=== PATIENT | male | born 1960 | race African-American/Black ===

== ENCOUNTER 2016-11-25 20:11 | Emergency (ER) | payer MEDICARE, MEDICAID ==
[~2016-11-25] VITALS: Ht 175.3 cm; Wt 96.8 kg
[~2016-11-25 20:11] MED LIST: AMOXICILLIN 8751 TAB PO; ANORO IH; ANTIINFLAMMATORY MED; ANTIVERT 25MG25 MG PO; BENADRYL25 M2 PO; CLINDAMYCIN300 MG PO; COMBIRESP IH; DAZIDOX20 MG PO; DOXYCYCLINE 10100 MG PO; FLEXERIL 1010 MG/TAB PO; FLONASE NASAL S16 GM NS; FLONASEALLERGY NS; FLOVENT 110MCG7.9 GM IH; FLOVENT DI50 MCG/Act IH; HIGH CHOLESTEROL MED; IPRATROPIUM BROM3 M1 IH; LASIX 20MG TABL20 MG PO; LASIX 40MG TABL40 MG PO; LEVAQUIN 750MG750 M1 PO; LEVAQUIN 750MG750 MG PO; LIPITOR20 MG PO; LISINOPRIL10 MG PO; LORTAB 10/500 51 TAB PO; LORTAB 5/500 501 TAB PO; MEDROL 4MG DOSPA4 MG PO; MS CONTIN 115 MG/TAB PO; MUCINEX D1 TER PO; NORCO 325 MG-51 TAB PO; NORVASC 10MG10 MG PO; PERCOCET 325 MG1 TAB PO; PREDNISONE10 MG PO; PREDNISONE20 MG PO; PRILOSEC 20MG20 MG PO; PRINIVIL20 MG PO; ROXICODONE30 MG PO; RT ADVAIR 128 DISKUS IH; ULTRAM 50MG TAB50 MG PO; VENTOLIN0.09 MG IH; VICODIN 5/5001 UDTAB PO; ZESTRIL 20MG TA20 MG PO; ZITHROMAX 250M250 MG PO; ZITHROMAX Z PA250 MG PO; [UNRECOGNIZED DRUG - OTHER] PO
[2016-11-25 20:13] VITALS: BP 153/87; PULSE 97; TEMP 98.2
[2016-11-25] MEDS ORDERED: PREDNISONE20 MG PO (20:46)
[2016-12-30] MEDS ORDERED: IPRATROPIUM BROM3 M1 IH (09:41)
== END 2016-11-25 20:54 | disposition home or self-care (01) ==
LOC: COL.ER 20:11
DX: J45.901 Unspecified asthma with (acute) exacerbation (principal); I10 Essential (primary) hypertension; G47.30 Sleep apnea, unspecified; K21.9 Gastro-esophageal reflux disease without esophagitis
CPT/HCPCS: J7512

== ENCOUNTER 2016-12-12 20:34 | Emergency (ER) | payer MEDICARE, MEDICAID ==
[~2016-12-12] VITALS: Ht 175.3 cm; Wt 102.3 kg
[2016-12-12 20:42] VITALS: TEMP 98.3
[2016-12-12] MEDS ORDERED: PREDNISONE10 MG PO (22:25)
[2016-12-12 22:49] VITALS: BP 135/62; PULSE 98
[2016-12-30] MEDS ORDERED: IPRATROPIUM BROM3 M1 IH (09:41)
== END 2016-12-12 22:49 | disposition home or self-care (01) ==
LOC: COL.ER 20:34
DX: J45.901 Unspecified asthma with (acute) exacerbation (principal)
CPT/HCPCS: J8540

== ENCOUNTER 2016-12-28 10:07 | Observation (INO) | payer MEDICARE, MEDICAID ==
[~2016-12-28] VITALS: Ht 175.3 cm; Wt 106.5 kg
[2016-12-28 10:46] LABS: BASO # 0.1 (0.0-0.2); BASO % 0.9 % (0.0-2.0); EOS # 0.5 (0.0-0.7); GRAN # 5.1 (1.4-6.5); GRAN % 52.3 % (42.2-75.2); HEMATOCRIT 39.9 % (42.0-52.0); HEMOGLOBIN 13.3 g/dl (13.5-18.0); LYMPH # 3.1 (1.2-3.4); MEAN CELL VOLUME 90 fl (80.0-100.0); MEAN CORPUSCULAR HEMOGLOBIN 30 pg (27.0-31.0); MEAN CORPUSCULAR HGB CONC 33 g/dl (33.0-37.0); MEAN PLATELET VOLUME 10.2 fl (7.4-10.4); MONO # 0.9 (0.1-0.6); MONO % 9.5 % (1.7-9.3); PLATELET COUNT 244 K/mm3 (130-400); RED BLOOD COUNT 4.42 M/mm3 (4.20-5.60); REDCELL DISTRIBUTION WIDTH-CV 12.6 % (11.5-14.5); WHITE BLOOD COUNT 9.8 K/mm3 (4.8-10.8)
[2016-12-28 11:02] LABS: INFLUENZA B NEGATIVE
[2016-12-28 11:15] LABS: ADJUSTED CALCIUM 9.5 mg/dL (8.4-10.2); ALANINE AMINOTRANSFERASE 53 U/L (21-72); ALBUMIN 4.5 gm/dL (3.5-5.0); ALKALINE PHOSPHATASE 76 U/L (50-136); ANION GAP 14 mmol/L (7-16); BILIRUBIN,TOTAL 0.7 mg/dL (0.0-1.0); BLOOD UREA NITROGEN 21 mg/dL (9-20); CALCIUM 9.9 mg/dL (8.4-10.2); CARBON DIOXIDE 28 mmol/L (22-30); CHLORIDE 96 mmol/L (98-107); CREATININE, serum 1.25 mg/dL (0.66-1.25); GLUCOSE 122 mg/dL (74-106); POTASSIUM 4.6 mmol/L (3.4-5.0); SODIUM 137 mmol/L (137-145); TOTAL PROTEIN 8.2 gm/dL (6.4-8.2)
[2016-12-28 11:23] LABS: B-TYPE NATRIURETIC PEPTIDE 17 pg/mL (0-125)
[2016-12-28 11:27] LABS: TROPONIN-I < 0.012 ng/mL (0.000-0.034)
[2016-12-28] MEDS ORDERED: PRILOSEC 20MG20 MG PO (14:10)
[2016-12-28 14:54] VITALS: BP 146/90; PULSE 100; TEMP 98.2
[2016-12-28 14:57] VITALS: BP 146/90; PULSE 98; TEMP 98.2
[2016-12-28 19:58] VITALS: BP 148/89; PULSE 109; TEMP 97.9
[2016-12-28 23:55] VITALS: BP 144/79; PULSE 103; TEMP 98.2
[2016-12-29 03:16] VITALS: BP 148/82; PULSE 113; TEMP 97.5
[2016-12-29 03:38] VITALS: BP 167/86; PULSE 105; TEMP 98.2
[2016-12-29 07:39] VITALS: BP 165/101; PULSE 95; TEMP 97.9
[2016-12-29] MEDS ORDERED: IPRATROPIUM BROM3 M1 IH (08:40)
[2016-12-29] MEDS ORDERED: SINGULAIR 110 MG/TAB PO (08:42)
[2016-12-29] MEDS ORDERED: PREDNISONE20 MG PO (08:44)
[2016-12-29 09:10] VITALS: BP 149/83; PULSE 107; TEMP 98.9
[2016-12-30] MEDS ORDERED: IPRATROPIUM BROM3 M1 IH (09:41)
== END 2016-12-29 09:36 | disposition home or self-care (01) ==
LOC: COL.ER 10:07 → MEDICAL 13:06
PROVIDERS: Emergency Medicine
DX: J45.901 Unspecified asthma with (acute) exacerbation (principal); R11.2 Nausea with vomiting, unspecified; I10 Essential (primary) hypertension; M54.9 Dorsalgia, unspecified; K21.9 Gastro-esophageal reflux disease without esophagitis; G89.29 Other chronic pain
CPT/HCPCS: G0378; J1650; J2930; J7030

== ENCOUNTER 2017-01-20 03:45 | Emergency (ER) | payer MEDICARE, MEDICAID ==
[~2017-01-20] VITALS: Ht 175.3 cm; Wt 100.0 kg
[~2017-01-20 03:45] MED LIST changes: +SINGULAIR 110 MG/TAB PO
[2017-01-20 04:12] LABS: BASO # 0.1 (0.0-0.2); BASO % 0.9 % (0.0-2.0); EOS # 0.6 (0.0-0.7); EOS % 7.8 % (0-4.0); GRAN # 5.1 (1.4-6.5); GRAN % 61.9 % (42.2-75.2); HEMOGLOBIN 12.3 g/dl (13.5-18.0); LYMPH # 1.8 (1.2-3.4); LYMPH % 21.3 % (20.0-51.0); MEAN CELL VOLUME 89 fl (80.0-100.0); MEAN CORPUSCULAR HEMOGLOBIN 30 pg (27.0-31.0); MEAN CORPUSCULAR HGB CONC 34 g/dl (33.0-37.0); MEAN PLATELET VOLUME 9.7 fl (7.4-10.4); MONO # 0.7 (0.1-0.6); MONO % 7.9 % (1.7-9.3); PLATELET COUNT 199 K/mm3 (130-400); RED BLOOD COUNT 4.13 M/mm3 (4.20-5.60); WHITE BLOOD COUNT 8.2 K/mm3 (4.8-10.8)
[2017-01-20 04:14] LABS: HEMATOCRIT 36.6 % (42.0-52.0)
[2017-01-20 04:23] LABS: ADJUSTED CALCIUM 9.7 mg/dL (8.4-10.2); ALANINE AMINOTRANSFERASE 44 U/L (21-72); ALBUMIN 4.3 gm/dL (3.5-5.0); ALKALINE PHOSPHATASE 67 U/L (50-136); ANION GAP 11 mmol/L (7-16); BILIRUBIN,TOTAL 0.8 mg/dL (0.0-1.0); BLOOD UREA NITROGEN 12 mg/dL (9-20); CALCIUM 9.9 mg/dL (8.4-10.2); CARBON DIOXIDE 31 mmol/L (22-30); CHLORIDE 93 mmol/L (98-107); CREATININE, serum 1.43 mg/dL (0.66-1.25); GLUCOSE 117 mg/dL (74-106); POTASSIUM 4.3 mmol/L (3.4-5.0); SODIUM 135 mmol/L (137-145); TOTAL PROTEIN 7.7 gm/dL (6.4-8.2)
[2017-01-20 04:27] LABS: INFLUENZA B NEGATIVE
[2017-01-20 04:34] LABS: B-TYPE NATRIURETIC PEPTIDE 16 pg/mL (0-125); TROPONIN-I < 0.012 ng/mL (0.000-0.034)
[2017-01-20] MEDS ORDERED: ZITHROMAX 250M250 MG PO (05:23)
[2017-01-20] MEDS ORDERED: PREDNISONE20 MG PO (05:23)
[2017-01-20 05:40] VITALS: BP 134/91; PULSE 92; TEMP 98.8
== END 2017-01-20 05:40 | disposition home or self-care (01) ==
LOC: COL.ER 03:45
PROVIDERS: Emergency Medicine
DX: J45.901 Unspecified asthma with (acute) exacerbation (principal); I10 Essential (primary) hypertension
CPT/HCPCS: J2930; J7512

== ENCOUNTER 2017-02-02 23:08 | Emergency (ER) | payer MEDICARE, MEDICAID ==
[~2017-02-02] VITALS: Ht 175.3 cm; Wt 102.3 kg
[2017-02-02 23:09] VITALS: TEMP 98.1
[2017-02-02] MEDS ORDERED: VENTOLIN0.09 MG IH (23:15)
[2017-02-02] MEDS ORDERED: FLOVENT DI100 MCG/Ac IH (23:18)
[2017-02-02] MEDS ORDERED: COMBIRESP IH (23:19)
[2017-02-02 23:24] LABS: BASO # 0.1 (0.0-0.2); BASO % 0.6 % (0.0-2.0); EOS # 0.7 (0.0-0.7); EOS % 7.8 % (0-4.0); GRAN # 5.5 (1.4-6.5); GRAN % 57.4 % (42.2-75.2); HEMATOCRIT 37.3 % (42.0-52.0); HEMOGLOBIN 12.4 g/dl (13.5-18.0); LYMPH # 2.4 (1.2-3.4); LYMPH % 25.5 % (20.0-51.0); MEAN CELL VOLUME 89 fl (80.0-100.0); MEAN CORPUSCULAR HEMOGLOBIN 30 pg (27.0-31.0); MEAN CORPUSCULAR HGB CONC 33 g/dl (33.0-37.0); MEAN PLATELET VOLUME 9.7 fl (7.4-10.4); MONO # 0.8 (0.1-0.6); MONO % 8.5 % (1.7-9.3); PLATELET COUNT 215 K/mm3 (130-400); REDCELL DISTRIBUTION WIDTH-CV 12.3 % (11.5-14.5); WHITE BLOOD COUNT 9.5 K/mm3 (4.8-10.8)
[2017-02-02 23:35] LABS: ALANINE AMINOTRANSFERASE 35 U/L (21-72); ALBUMIN 4.3 gm/dL (3.5-5.0); ALKALINE PHOSPHATASE 60 U/L (50-136); ANION GAP 14 mmol/L (7-16); BILIRUBIN,TOTAL 0.8 mg/dL (0.0-1.0); BLOOD UREA NITROGEN 9 mg/dL (9-20); CALCIUM 10.2 mg/dL (8.4-10.2); CARBON DIOXIDE 28 mmol/L (22-30); CHLORIDE 97 mmol/L (98-107); CREATININE, serum 1.08 mg/dL (0.66-1.25); GLUCOSE 104 mg/dL (74-106); MAGNESIUM 1.7 mg/dL (1.6-2.3); POTASSIUM 4.1 mmol/L (3.4-5.0); SODIUM 139 mmol/L (137-145); TOTAL PROTEIN 7.6 gm/dL (6.4-8.2)
[2017-02-02 23:47] LABS: B-TYPE NATRIURETIC PEPTIDE 14 pg/mL (0-125)
[2017-02-02 23:58] LABS: TROPONIN-I < 0.012 ng/mL (0.000-0.034)
[2017-02-03] MEDS ORDERED: PREDNISONE10 MG PO (02:21)
[2017-02-03 03:34] VITALS: BP 139/83; PULSE 113
== END 2017-02-03 03:34 | disposition home or self-care (01) ==
LOC: COL.ER 23:08
PROVIDERS: Emergency Medicine
DX: J45.901 Unspecified asthma with (acute) exacerbation (principal); R00.0 Tachycardia, unspecified
CPT/HCPCS: J1170; J7030; J7512

== ENCOUNTER 2017-02-20 16:02 | Emergency (ER) | payer MEDICARE, MEDICAID ==
[~2017-02-20] VITALS: Ht 175.3 cm; Wt 45.0 kg
[~2017-02-20 16:02] MED LIST changes: +FLOVENT DI100 MCG/Ac IH
[2017-02-20 16:05] VITALS: BP 133/82; TEMP 98.2
[2017-02-20] MEDS ORDERED: PREDNISONE20 MG PO (16:55)
[2017-02-20 18:04] VITALS: PULSE 101
== END 2017-02-20 18:06 | disposition home or self-care (01) ==
LOC: COL.ER 16:02
DX: J45.901 Unspecified asthma with (acute) exacerbation (principal)
CPT/HCPCS: J7512

== ENCOUNTER 2017-03-09 10:35 | Day surgery (SDC) | payer MEDICARE, MEDICAID ==
[2017-03-09] VITALS (9 sets, daily range): BP systolic 129–150; BP diastolic 68–95; PULSE 86–105; TEMP 98.1–98.3
[~2017-03-09] VITALS: Ht 175.3 cm; Wt 99.1 kg
[2017-03-09] MEDS ORDERED: XYZAL5 MG PO (11:20)
[2017-03-09] MEDS ORDERED: ANORO IH (11:23)
[2017-03-09] MEDS ORDERED: MOTRIN 600600 MG/TAB PO (14:24)
[2017-03-09] MEDS ORDERED: PERCOCET 325 MG1 TA3 PO (14:25)
[2017-03-09] MEDS ORDERED: ZOFRAN ODT4 MG PO (14:26)
[2017-03-09] MEDS ORDERED: COLACE 100100 MG/CAP PO (14:26)
== END 2017-03-09 17:47 | disposition home or self-care (01) ==
LOC: SDCO 10:35
DX: I10 Essential (primary) hypertension (principal); E78.5 Hyperlipidemia, unspecified; G47.30 Sleep apnea, unspecified; K21.9 Gastro-esophageal reflux disease without esophagitis; D17.6 Benign lipomatous neoplasm of spermatic cord
CPT/HCPCS: C1781; J0690; J1885; J2270; J2704; J3010; J7120

== ENCOUNTER 2017-03-10 05:55 | Emergency (ER) | payer MEDICARE, MEDICAID ==
[~2017-03-10] VITALS: Ht 175.3 cm; Wt 99.5 kg
[~2017-03-10 05:55] MED LIST changes: +COLACE 100100 MG/CAP PO; +MOTRIN 600600 MG/TAB PO; +PERCOCET 325 MG1 TA3 PO; +XYZAL5 MG PO; +ZOFRAN ODT4 MG PO
[2017-03-10 05:58] VITALS: TEMP 97.7
[2017-03-10 07:02] LABS: BASO % 0.4 % (0.0-2.0); EOS # 0.3 (0.0-0.7); EOS % 2.6 % (0-4.0); GRAN # 8.1 (1.4-6.5); GRAN % 74.8 % (42.2-75.2); HEMOGLOBIN 12.2 g/dl (13.5-18.0); LYMPH # 1.3 (1.2-3.4); LYMPH % 12.2 % (20.0-51.0); MEAN CELL VOLUME 89 fl (80.0-100.0); MEAN CORPUSCULAR HEMOGLOBIN 30 pg (27.0-31.0); MEAN CORPUSCULAR HGB CONC 34 g/dl (33.0-37.0); MEAN PLATELET VOLUME 10.4 fl (7.4-10.4); MONO % 9.6 % (1.7-9.3); PLATELET COUNT 190 K/mm3 (130-400); RED BLOOD COUNT 4.11 M/mm3 (4.20-5.60); WHITE BLOOD COUNT 10.8 K/mm3 (4.8-10.8)
[2017-03-10 07:05] LABS: HEMATOCRIT 36.4 % (42.0-52.0)
[2017-03-10 07:09] LABS: ADJUSTED CALCIUM 9.4 mg/dL (8.4-10.2); ALBUMIN 3.8 gm/dL (3.5-5.0); BILIRUBIN,TOTAL 1.3 mg/dL (0.0-1.0); CALCIUM 9.2 mg/dL (8.4-10.2); POTASSIUM 3.9 mmol/L (3.4-5.0); TOTAL PROTEIN 6.8 gm/dL (6.4-8.2)
[2017-03-10 10:34] VITALS: BP 147/94; PULSE 88
== END 2017-03-10 10:36 | disposition home or self-care (01) ==
LOC: COL.ER 05:55
PROVIDERS: Emergency Medicine
DX: J45.901 Unspecified asthma with (acute) exacerbation (principal); I10 Essential (primary) hypertension; Z98.890 Other specified postprocedural states
CPT/HCPCS: J1100; J1170; J7030; Q9967

== ENCOUNTER 2017-03-23 21:27 | Inpatient (IN) | payer MEDICARE, MEDICAID ==
[~2017-03-23] VITALS: Ht 175.3 cm; Wt 98.4 kg
[2017-03-23 22:24] LABS: BASO # 0.1 (0.0-0.2); BASO % 0.9 % (0.0-2.0); EOS # 0.7 (0.0-0.7); EOS % 9.8 % (0-4.0); GRAN # 3.5 (1.4-6.5); GRAN % 52.4 % (42.2-75.2); HEMOGLOBIN 12.5 g/dl (13.5-18.0); MEAN CELL VOLUME 89 fl (80.0-100.0); MEAN CORPUSCULAR HEMOGLOBIN 30 pg (27.0-31.0); MEAN CORPUSCULAR HGB CONC 34 g/dl (33.0-37.0); MEAN PLATELET VOLUME 9.7 fl (7.4-10.4); MONO # 0.4 (0.1-0.6); MONO % 6.7 % (1.7-9.3); PLATELET COUNT 260 K/mm3 (130-400); RED BLOOD COUNT 4.14 M/mm3 (4.20-5.60); REDCELL DISTRIBUTION WIDTH-CV 12.3 % (11.5-14.5); WHITE BLOOD COUNT 6.6 K/mm3 (4.8-10.8)
[2017-03-23 22:33] LABS: ADJUSTED CALCIUM 9.7 mg/dL (8.4-10.2); ALBUMIN 3.9 gm/dL (3.5-5.0); BILIRUBIN,TOTAL 0.5 mg/dL (0.0-1.0); CALCIUM 9.6 mg/dL (8.4-10.2); CREATININE, serum 0.97 mg/dL (0.66-1.25)
[2017-03-23 22:43] LABS: HEMATOCRIT 36.8 % (42.0-52.0)
[2017-03-23 23:52] LABS: ARTERIAL BLD GAS O2 SATURATION 89.9 % (92-100); ARTERIAL BLD GAS TCO2 CT 25.8; ARTERIAL BLOOD GAS BASE EXCESS -0.2 (-2-2); ARTERIAL BLOOD GAS HCO3 24.5 meq/L (22-26); ARTERIAL BLOOD GAS PO2 62.1 mmHg (80-100)
[2017-03-23 23:53] LABS: ALLEN TEST YES; ALLENS TEST RESULT PASS; ATS? YES
[2017-03-23 23:57] LABS: INFLUENZA B NEGATIVE
[2017-03-24 01:33] VITALS: BP 159/81; PULSE 101; TEMP 98.8
[2017-03-24 07:30] VITALS: BP 139/75; PULSE 94; TEMP 98.1
[2017-03-24 11:45] VITALS: BP 139/92; PULSE 73; TEMP 98.3
[2017-03-24] MEDS ORDERED: COMBIRESP IH (13:25)
[2017-03-24] MEDS ORDERED: FLONASEALLERGY NS (13:26)
[2017-03-24] MEDS ORDERED: PREDNISONE20 MG PO (13:27)
[2017-03-24] MEDS ORDERED: SINGULAIR 110 MG/TAB PO (13:28)
== END 2017-03-24 14:58 | disposition home or self-care (01) | DRG 203 ==
LOC: COL.ER 21:27 → MEDICAL 23:53
PROVIDERS: Emergency Medicine
DX: J45.51 Severe persistent asthma with (acute) exacerbation (principal); I10 Essential (primary) hypertension; D64.9 Anemia, unspecified; G89.29 Other chronic pain; M54.9 Dorsalgia, unspecified
CPT/HCPCS: J0696; J1650; J2930; J7030

== ENCOUNTER 2017-04-15 12:34 | Emergency (ER) | payer MEDICARE, MEDICAID ==
[~2017-04-15] VITALS: Ht 175.3 cm; Wt 95.5 kg
[2017-04-15 12:36] VITALS: BP 122/78; TEMP 98.1
[2017-04-15] MEDS ORDERED: ZITHROMAX500 M2 PO (13:06)
[2017-04-15] MEDS ORDERED: PREDNISONE20 MG PO (13:06)
[2017-04-15 13:25] VITALS: PULSE 104
== END 2017-04-15 14:00 | disposition home or self-care (01) ==
LOC: COL.ER 12:34
DX: J45.901 Unspecified asthma with (acute) exacerbation (principal); I10 Essential (primary) hypertension
CPT/HCPCS: J7512

== ENCOUNTER 2017-05-14 06:25 | Emergency (ER) | payer MEDICARE, MEDICAID ==
[~2017-05-14] VITALS: Ht 175.3 cm; Wt 97.7 kg
[~2017-05-14 06:25] MED LIST changes: +ZITHROMAX500 M2 PO
[2017-05-14 06:27] VITALS: BP 136/83; TEMP 98.3
[2017-05-14] MEDS ORDERED: ANORO IH (06:41)
[2017-05-14] MEDS ORDERED: ALBUTEROL0.83 MG/ML IH (06:42)
[2017-05-14] MEDS ORDERED: PREDNISONE20 MG PO (08:29)
[2017-05-14] MEDS ORDERED: ZITHROMAX Z PA250 MG PO (08:29)
[2017-05-14 08:45] VITALS: PULSE 103
== END 2017-05-14 08:46 | disposition home or self-care (01) ==
LOC: COL.ER 06:25
DX: J20.9 Acute bronchitis, unspecified (principal); J45.909 Unspecified asthma, uncomplicated; I10 Essential (primary) hypertension; G89.29 Other chronic pain; M54.9 Dorsalgia, unspecified
CPT/HCPCS: J7512

== ENCOUNTER 2017-05-31 05:10 | Emergency (ER) | payer MEDICARE, MEDICAID ==
[~2017-05-31] VITALS: Ht 175.3 cm; Wt 95.5 kg
[~2017-05-31 05:10] MED LIST changes: +ALBUTEROL0.83 MG/ML IH
[2017-05-31 05:11] VITALS: TEMP 97.9
[2017-05-31] MEDS ORDERED: PROVENTIL0.09 MG/A1 IH (05:44)
[2017-05-31] MEDS ORDERED: PREDNISONE20 MG PO (06:58)
[2017-05-31 07:33] VITALS: BP 142/70; PULSE 96
== END 2017-05-31 07:34 | disposition home or self-care (01) ==
LOC: COL.ER 05:10
DX: J45.901 Unspecified asthma with (acute) exacerbation (principal); I10 Essential (primary) hypertension
CPT/HCPCS: J7512

== ENCOUNTER 2017-06-11 12:13 | Emergency (ER) | payer MEDICARE, MEDICAID ==
[~2017-06-11] VITALS: Ht 175.3 cm; Wt 95.9 kg
[~2017-06-11 12:13] MED LIST changes: +PROVENTIL0.09 MG/A1 IH
[2017-06-11 12:22] VITALS: BP 146/88; TEMP 98.6
[2017-06-11] MEDS ORDERED: ANORO (12:39)
[2017-06-11] MEDS ORDERED: PREDNISONE20 MG PO (13:04)
[2017-06-11 13:24] VITALS: PULSE 95
== END 2017-06-11 13:25 | disposition home or self-care (01) ==
LOC: COL.ER 12:13
DX: J45.901 Unspecified asthma with (acute) exacerbation (principal); K21.9 Gastro-esophageal reflux disease without esophagitis; M25.561 Pain in right knee
CPT/HCPCS: J7512

== ENCOUNTER 2017-06-29 09:20 | Emergency (ER) | payer MEDICARE, MEDICAID ==
[~2017-06-29] VITALS: Ht 175.3 cm; Wt 95.5 kg
[~2017-06-29 09:20] MED LIST changes: +ANORO
[2017-06-29] MEDS ORDERED: FLOVENT 110MCG7.9 GM IH (10:12)
[2017-06-29] MEDS ORDERED: VENTOLIN0.09 MG IH (10:12)
[2017-06-29] MEDS ORDERED: PREDNISONE20 MG PO (10:12)
[2017-06-29 10:58] VITALS: BP 121/77; PULSE 94; TEMP 97.8
== END 2017-06-29 11:11 | disposition home or self-care (01) ==
LOC: COL.ER 09:20
DX: J45.901 Unspecified asthma with (acute) exacerbation (principal); I10 Essential (primary) hypertension; M54.9 Dorsalgia, unspecified; G89.29 Other chronic pain
CPT/HCPCS: J7512

== ENCOUNTER 2017-07-06 18:23 | Emergency (ER) | payer MEDICARE, MEDICAID ==
[~2017-07-06] VITALS: Ht 175.3 cm; Wt 93.6 kg
[2017-07-06 18:26] VITALS: TEMP 98.1
[2017-07-06 19:01] LABS: BASO % 0.4 % (0.0-2.0); EOS # 0.3 (0.0-0.7); EOS % 4.5 % (0-4.0); GRAN # 4.2 (1.4-6.5); GRAN % 55.6 % (42.2-75.2); HEMATOCRIT 38.5 % (42.0-52.0); HEMOGLOBIN 12.8 g/dl (13.5-18.0); LYMPH # 2.4 (1.2-3.4); MEAN CELL VOLUME 89 fl (80.0-100.0); MEAN CORPUSCULAR HEMOGLOBIN 30 pg (27.0-31.0); MEAN CORPUSCULAR HGB CONC 33 g/dl (33.0-37.0); MEAN PLATELET VOLUME 9.6 fl (7.4-10.4); MONO # 0.5 (0.1-0.6); MONO % 7.1 % (1.7-9.3); PLATELET COUNT 255 K/mm3 (130-400); RED BLOOD COUNT 4.32 M/mm3 (4.20-5.60); REDCELL DISTRIBUTION WIDTH-CV 12.7 % (11.5-14.5); WHITE BLOOD COUNT 7.6 K/mm3 (4.8-10.8)
[2017-07-06 19:18] LABS: ADJUSTED CALCIUM 9.4 mg/dL (8.4-10.2); ALANINE AMINOTRANSFERASE 51 U/L (21-72); ALBUMIN 4.2 gm/dL (3.5-5.0); ALKALINE PHOSPHATASE 66 U/L (50-136); ANION GAP 9 mmol/L (7-16); BILIRUBIN,TOTAL 0.6 mg/dL (0.0-1.0); BLOOD UREA NITROGEN 18 mg/dL (9-20); CALCIUM 9.6 mg/dL (8.4-10.2); CARBON DIOXIDE 31 mmol/L (22-30); CHLORIDE 93 mmol/L (98-107); CREATININE, serum 0.94 mg/dL (0.66-1.25); GLUCOSE 98 mg/dL (74-106); POTASSIUM 4.1 mmol/L (3.4-5.0); SODIUM 133 mmol/L (137-145); TOTAL PROTEIN 7.5 gm/dL (6.4-8.2)
[2017-07-06 19:24] LABS: C-REACTIVE PROTEIN 0.5 mg/dL (0.0-0.9)
[2017-07-06 19:27] LABS: TROPONIN-I < 0.012 ng/mL (0.000-0.034)
[2017-07-06] MEDS ORDERED: PREDNISONE20 MG PO (20:00)
[2017-07-06] MEDS ORDERED: ANTIVERT 25MG25 MG PO (20:00)
[2017-07-06 20:15] VITALS: BP 145/78; PULSE 88
== END 2017-07-06 20:16 | disposition home or self-care (01) ==
LOC: COL.ER 18:23
PROVIDERS: Emergency Medicine
DX: J45.909 Unspecified asthma, uncomplicated (principal); R42 Dizziness and giddiness; R19.7 Diarrhea, unspecified; I10 Essential (primary) hypertension
CPT/HCPCS: J2405; J7030; J7512

== ENCOUNTER 2017-08-04 22:23 | Emergency (ER) | payer MEDICARE, MEDICAID ==
[~2017-08-04] VITALS: Ht 175.3 cm; Wt 95.5 kg
[2017-08-04 22:25] VITALS: BP 141/74
[2017-08-04] MEDS ORDERED: IPRATROPIUM BROM3 M1 IH ×2 (22:41→23:54)
[2017-08-04] MEDS ORDERED: PREDNISONE20 MG PO (23:20)
[2017-08-04 23:57] VITALS: PULSE 94; TEMP 98.3
[2017-08-05] MEDS ORDERED: PREDNISONE20 MG PO (08:57)
[2017-08-05] MEDS ORDERED: IPRATROPIUM BROM3 M1 IH ×3 (08:57→08:59)
== END 2017-08-04 23:57 | disposition home or self-care (01) ==
LOC: COL.ER 22:23
DX: J45.901 Unspecified asthma with (acute) exacerbation (principal)
CPT/HCPCS: J7512

== ENCOUNTER 2017-08-15 16:56 | Emergency (ER) | payer MEDICARE ==
[~2017-08-15] VITALS: Ht 175.3 cm; Wt 95.0 kg
[2017-08-15 16:59] VITALS: BP 145/83; TEMP 98.1
[2017-08-15] MEDS ORDERED: SINGULAIR 110 MG/TAB PO (18:58)
[2017-08-15] MEDS ORDERED: PREDNISONE20 MG PO (18:58)
[2017-08-15 19:03] VITALS: PULSE 110
== END 2017-08-15 19:04 | disposition home or self-care (01) ==
LOC: COL.ER 16:56
DX: J45.901 Unspecified asthma with (acute) exacerbation (principal); I10 Essential (primary) hypertension; R00.0 Tachycardia, unspecified; G89.29 Other chronic pain; M54.9 Dorsalgia, unspecified; M25.561 Pain in right knee
CPT/HCPCS: J7512

== ENCOUNTER 2017-09-02 04:10 | Emergency (ER) | payer MEDICARE ==
[~2017-09-02] VITALS: Ht 175.3 cm; Wt 95.5 kg
[2017-09-02 04:18] VITALS: TEMP 97.8
[2017-09-02] MEDS ORDERED: PREDNISONE20 MG PO (06:26)
[2017-09-02] MEDS ORDERED: PROTONIX 40MG T40 MG PO (06:26)
[2017-09-02 06:45] VITALS: BP 128/81; PULSE 81
== END 2017-09-02 06:45 | disposition home or self-care (01) ==
LOC: COL.ER 04:10
DX: J44.1 Chronic obstructive pulmonary disease with (acute) exacerbation (principal); J45.901 Unspecified asthma with (acute) exacerbation; K21.9 Gastro-esophageal reflux disease without esophagitis; Z98.890 Other specified postprocedural states
CPT/HCPCS: J7512

== ENCOUNTER 2017-09-13 10:27 | Emergency (ER) | payer MEDICARE ==
[~2017-09-13] VITALS: Ht 175.3 cm; Wt 95.5 kg
[~2017-09-13 10:27] MED LIST changes: +PROTONIX 40MG T40 MG PO
[2017-09-13 10:32] VITALS: BP 158/80; PULSE 99; TEMP 97
== END 2017-09-13 11:42 | disposition left against medical advice (07) ==
LOC: COL.ER 10:27
DX: R51 Headache (principal); R11.0 Nausea; R06.02 Shortness of breath

== ENCOUNTER 2017-09-24 05:51 | Emergency (ER) | payer MEDICARE ==
[~2017-09-24] VITALS: Ht 175.3 cm; Wt 94.9 kg
[2017-09-24 05:53] VITALS: TEMP 97.8
[2017-09-24] MEDS ORDERED: ZITHROMAX 250M250 MG PO (06:50)
[2017-09-24] MEDS ORDERED: PREDNISONE20 MG PO (06:50)
[2017-09-24 07:05] VITALS: BP 134/88; PULSE 91
== END 2017-09-24 07:01 | disposition home or self-care (01) ==
LOC: COL.ER 05:51
DX: J20.9 Acute bronchitis, unspecified (principal); J45.909 Unspecified asthma, uncomplicated; J32.9 Chronic sinusitis, unspecified; I10 Essential (primary) hypertension; F17.210 Nicotine dependence, cigarettes, uncomplicated; K21.9 Gastro-esophageal reflux disease without esophagitis
CPT/HCPCS: J7512

== ENCOUNTER 2017-10-14 19:09 | Emergency (ER) | payer MEDICARE ==
[~2017-10-14] VITALS: Ht 175.3 cm; Wt 93.2 kg
[2017-10-14 19:11] VITALS: BP 128/79
[2017-10-14] MEDS ORDERED: VENTOLIN0.09 MG IH (19:29)
[2017-10-14] MEDS ORDERED: DOXYCYCLINE 10100 MG PO (20:16)
[2017-10-14] MEDS ORDERED: PREDNISONE20 MG PO (20:16)
[2017-10-14 21:38] VITALS: PULSE 104; TEMP 96.8
== END 2017-10-14 22:08 | disposition home or self-care (01) ==
LOC: COL.ER 19:09
DX: J44.0 Chronic obstructive pulmonary disease with (acute) lower respiratory infection (principal); J44.1 Chronic obstructive pulmonary disease with (acute) exacerbation; J20.9 Acute bronchitis, unspecified
CPT/HCPCS: J7512

== ENCOUNTER 2017-11-04 11:25 | Emergency (ER) | payer MEDICARE, MEDICAID ==
[~2017-11-04] VITALS: Ht 175.3 cm; Wt 95.5 kg
[2017-11-04 11:28] VITALS: TEMP 98.2
[2017-11-04] MEDS ORDERED: PREDNISONE20 MG PO (14:21)
[2017-11-04 14:28] VITALS: BP 122/77; PULSE 88
== END 2017-11-04 14:29 | disposition home or self-care (01) ==
LOC: COL.ER 11:25
DX: J45.901 Unspecified asthma with (acute) exacerbation (principal); I10 Essential (primary) hypertension; M54.9 Dorsalgia, unspecified; G89.29 Other chronic pain
CPT/HCPCS: J7512

== ENCOUNTER 2018-03-29 14:09 | Emergency (ER) | payer MEDICARE ==
[~2018-03-29] VITALS: Ht 175.3 cm; Wt 100.0 kg
[2018-03-29 14:12] VITALS: BP 177/91; TEMP 97.1
[2018-03-29] MEDS ORDERED: AMOXICILLIN 8751 TAB PO (14:48)
[2018-03-29] MEDS ORDERED: PREDNISONE20 MG PO (14:48)
[2018-03-29 15:08] VITALS: PULSE 70
== END 2018-03-29 15:09 | disposition home or self-care (01) ==
LOC: COL.ER 14:09
DX: J45.901 Unspecified asthma with (acute) exacerbation (principal); J32.9 Chronic sinusitis, unspecified; K21.9 Gastro-esophageal reflux disease without esophagitis; Z86.69 Personal history of other diseases of the nervous system and sense organs; Z98.890 Other specified postprocedural states; Z79.51 Long term (current) use of inhaled steroids

== ENCOUNTER 2018-05-06 17:37 | Emergency (ER) | payer MEDICARE ==
[~2018-05-06] VITALS: Ht 175.3 cm; Wt 98.2 kg
[2018-05-06 17:44] VITALS: BP 127/84; PULSE 76; TEMP 97.7
[2018-05-06] MEDS ORDERED: PREDNISONE10 MG PO (18:06)
== END 2018-05-06 18:29 | disposition home or self-care (01) ==
LOC: COL.ER 17:37
DX: J45.909 Unspecified asthma, uncomplicated (principal); J06.9 Acute upper respiratory infection, unspecified; G47.33 Obstructive sleep apnea (adult) (pediatric); M54.5 Low back pain; G89.29 Other chronic pain; Z79.891 Long term (current) use of opiate analgesic

== ENCOUNTER 2018-07-01 21:13 | Emergency (ER) | payer MEDICARE ==
[~2018-07-01] VITALS: Ht 175.3 cm; Wt 97.7 kg
[2018-07-01 21:22] VITALS: BP 130/78; PULSE 69; TEMP 97.9
[2018-07-01] MEDS ORDERED: ZITHROMAX 250M250 MG PO (21:35)
[2018-07-01] MEDS ORDERED: PREDNISONE20 MG PO (21:35)
== END 2018-07-01 21:50 | disposition home or self-care (01) ==
LOC: COL.ER 21:13
DX: J06.9 Acute upper respiratory infection, unspecified (principal); J45.909 Unspecified asthma, uncomplicated; Z79.891 Long term (current) use of opiate analgesic
CPT/HCPCS: J7512

== ENCOUNTER 2018-08-11 22:50 | Emergency (ER) | payer MEDICARE ==
[~2018-08-11] VITALS: Ht 175.3 cm; Wt 99.1 kg
[2018-08-11 22:58] VITALS: BP 164/88
[2018-08-11 23:18] VITALS: TEMP 97.1
[2018-08-11] MEDS ORDERED: PRINIVIL40 MG PO (23:20)
[2018-08-11] MEDS ORDERED: DAZIDOX10 MG PO ×2 (23:20→23:21)
[2018-08-11] MEDS ORDERED: ROXICODONE30 MG PO (23:21)
[2018-08-11] MEDS ORDERED: 00186-0370-20 IH (23:22)
[2018-08-11] MEDS ORDERED: ALBUTEROL0.83 MG/ML IH (23:22)
[2018-08-11] MEDS ORDERED: ZITHROMAX 250M250 MG PO (23:24)
[2018-08-11] MEDS ORDERED: PREDNISONE20 MG PO (23:24)
[2018-08-12 00:20] VITALS: PULSE 70
== END 2018-08-12 00:20 | disposition home or self-care (01) ==
LOC: COL.ER 22:50
DX: J06.9 Acute upper respiratory infection, unspecified (principal); J44.9 Chronic obstructive pulmonary disease, unspecified; Z98.890 Other specified postprocedural states
CPT/HCPCS: J7512

== ENCOUNTER 2018-09-01 16:47 | Emergency (ER) | payer MEDICARE ==
[~2018-09-01] VITALS: Ht 175.3 cm; Wt 100.0 kg
[~2018-09-01 16:47] MED LIST changes: +00186-0370-20 IH; +DAZIDOX10 MG PO; +PRINIVIL40 MG PO
[2018-09-01] MEDS ORDERED: PREDNISONE10 MG PO (17:13)
[2018-09-01 17:20] VITALS: BP 174/80; PULSE 64; TEMP 97.6
== END 2018-09-01 17:20 | disposition home or self-care (01) ==
LOC: COL.ER 16:47
DX: J06.9 Acute upper respiratory infection, unspecified (principal); J31.0 Chronic rhinitis; J45.909 Unspecified asthma, uncomplicated
CPT/HCPCS: J7512

== ENCOUNTER 2018-09-19 04:34 | Emergency (ER) | payer MEDICARE ==
[~2018-09-19] VITALS: Ht 175.3 cm; Wt 103.2 kg
[2018-09-19 04:38] VITALS: BP 136/74; TEMP 98.3
[2018-09-19] MEDS ORDERED: FLONASE NASAL S16 GM NS (04:53)
[2018-09-19] MEDS ORDERED: PREDNISONE10 MG PO (05:32)
[2018-09-19 05:37] VITALS: PULSE 87
== END 2018-09-19 05:48 | disposition home or self-care (01) ==
LOC: COL.ER 04:34
DX: J45.901 Unspecified asthma with (acute) exacerbation (principal); J06.9 Acute upper respiratory infection, unspecified
CPT/HCPCS: J8540

== ENCOUNTER 2018-11-03 09:46 | Emergency (ER) | payer MEDICARE ==
[~2018-11-03] VITALS: Ht 175.3 cm; Wt 102.3 kg
[2018-11-03 09:51] VITALS: TEMP 96.1
[2018-11-03 10:32] LABS: BASO % 0.3 % (0.0-2.0); EOS # 0.4 (0.0-0.7); EOS % 5.6 % (0-4.0); GRAN % 47.1 % (42.2-75.2); HEMATOCRIT 40.6 % (42.0-52.0); HEMOGLOBIN 13.5 g/dl (13.5-18.0); LYMPH # 2.4 (1.2-3.4); LYMPH % 36.8 % (20.0-51.0); MEAN CELL VOLUME 90 fl (80.0-100.0); MEAN CORPUSCULAR HEMOGLOBIN 30 pg (27.0-31.0); MEAN CORPUSCULAR HGB CONC 33 g/dl (33.0-37.0); MEAN PLATELET VOLUME 10.2 fl (7.4-10.4); MONO # 0.6 (0.1-0.6); MONO % 9.9 % (1.7-9.3); PLATELET COUNT 230 K/mm3 (130-400); RED BLOOD COUNT 4.53 M/mm3 (4.20-5.60); REDCELL DISTRIBUTION WIDTH-CV 12.5 % (11.5-14.5)
[2018-11-03 10:42] LABS: ALANINE AMINOTRANSFERASE 26 U/L (21-72); ALBUMIN 4.5 gm/dL (3.5-5.0); ALKALINE PHOSPHATASE 84 U/L (50-136); ANION GAP 7 mmol/L (7-16); AST,SGOT 29 U/L (15-37); BILIRUBIN,TOTAL 0.3 mg/dL (0.0-1.0); BLOOD UREA NITROGEN 17 mg/dL (9-20); CALCIUM 9.8 mg/dL (8.4-10.2); CARBON DIOXIDE 30 mmol/L (22-30); CHLORIDE 101 mmol/L (98-107); CREATININE, serum 0.92 mg/dL (0.66-1.25); GLUCOSE 102 mg/dL (74-106); SODIUM 138 mmol/L (137-145); TOTAL PROTEIN 7.8 gm/dL (6.4-8.2)
[2018-11-03 10:44] LABS: ALCOHOL(ethanol),MEDICAL < 10 mg/dL
[2018-11-03 11:40] VITALS: BP 138/77; PULSE 64
== END 2018-11-03 11:58 | disposition home or self-care (01) ==
LOC: COL.ER 09:46
PROVIDERS: Emergency Medicine
DX: R42 Dizziness and giddiness (principal); R51 Headache; J45.909 Unspecified asthma, uncomplicated; Z79.51 Long term (current) use of inhaled steroids
CPT/HCPCS: J0780; J1200; J1885; J7030

== ENCOUNTER 2018-12-31 15:23 | Emergency (ER) | payer MEDICARE ==
[~2018-12-31] VITALS: Ht 175.3 cm; Wt 102.5 kg
[2018-12-31 15:28] VITALS: BP 135/67
[2018-12-31] MEDS ORDERED: ZITHROMAX Z PA250 MG PO (17:12)
[2018-12-31 17:30] VITALS: PULSE 78
== END 2018-12-31 17:31 | disposition home or self-care (01) ==
LOC: COL.ER 15:23
DX: J06.9 Acute upper respiratory infection, unspecified (principal)

== ENCOUNTER 2019-01-06 17:13 | Emergency (ER) | payer MEDICARE | END 2019-01-06 19:48 | disposition home or self-care (01) | LOC: COL.ER 17:13 | DX: R09.81 Nasal congestion (principal); J45.909 Unspecified asthma, uncomplicated; Z79.899 Other long term (current) drug therapy ==

== ENCOUNTER 2019-02-21 14:57 | Emergency (ER) | payer MEDICARE ==
[~2019-02-21] VITALS: Ht 403.9 cm; Wt 99.5 kg
[~2019-02-21 14:57] MED LIST changes: +ALLEGRA-D 24HR1 T24 PO
[2019-02-21 15:01] VITALS: TEMP 97.8
[2019-02-21] MEDS ORDERED: PREDNISONE20 MG PO (15:19)
[2019-02-21] MEDS ORDERED: AMOXICILLIN 8751 TAB PO (15:19)
[2019-02-21 15:34] VITALS: BP 140/67; PULSE 87
== END 2019-02-21 15:35 | disposition home or self-care (01) ==
LOC: COL.ER 14:57
DX: J01.90 Acute sinusitis, unspecified (principal); K21.9 Gastro-esophageal reflux disease without esophagitis; J45.909 Unspecified asthma, uncomplicated; Z79.51 Long term (current) use of inhaled steroids

== ENCOUNTER 2019-03-07 17:23 | Emergency (ER) | payer MEDICARE | END 2019-03-07 17:45 | disposition home or self-care (01) | LOC: COL.ER 17:23 | DX: Z72.9 Problem related to lifestyle, unspecified (principal) ==

== ENCOUNTER 2019-03-20 05:00 | Emergency (ER) | payer MEDICARE ==
[~2019-03-20] VITALS: Ht 175.3 cm; Wt 102.3 kg
[2019-03-20 05:04] VITALS: TEMP 98
[2019-03-20 06:18] VITALS: BP 131/78; PULSE 85
== END 2019-03-20 06:19 | disposition home or self-care (01) ==
LOC: COL.ER 05:00
DX: J45.909 Unspecified asthma, uncomplicated (principal); I10 Essential (primary) hypertension; Z79.51 Long term (current) use of inhaled steroids

== ENCOUNTER 2019-04-20 06:23 | Emergency (ER) | payer MEDICARE ==
[~2019-04-20] VITALS: Ht 175.3 cm; Wt 95.5 kg
[2019-04-20 06:34] VITALS: BP 137/93; TEMP 98.7
[2019-04-20] MEDS ORDERED: PREDNISONE20 MG PO (07:21)
[2019-04-20 07:24] LABS: BASO % 0.4 % (0.0-2.0); EOS # 0.8 (0.0-0.7); EOS % 9.9 % (0-4.0); GRAN # 4.6 (1.4-6.5); GRAN % 60.4 % (42.2-75.2); HEMATOCRIT 37.5 % (42.0-52.0); HEMOGLOBIN 12.4 g/dl (13.5-18.0); LYMPH # 1.5 (1.2-3.4); LYMPH % 19.9 % (20.0-51.0); MEAN CELL VOLUME 90 fl (80.0-100.0); MEAN CORPUSCULAR HEMOGLOBIN 30 pg (27.0-31.0); MEAN CORPUSCULAR HGB CONC 33 g/dl (33.0-37.0); MEAN PLATELET VOLUME 9.9 fl (7.4-10.4); MONO # 0.7 (0.1-0.6); MONO % 9.1 % (1.7-9.3); PLATELET COUNT 210 K/mm3 (130-400); RED BLOOD COUNT 4.18 M/mm3 (4.20-5.60); REDCELL DISTRIBUTION WIDTH-CV 12.5 % (11.5-14.5)
[2019-04-20 07:44] LABS: ALBUMIN 4.2 gm/dL (3.5-5.0); BILIRUBIN,TOTAL 0.4 mg/dL (0.0-1.0); CALCIUM 9.6 mg/dL (8.4-10.2); TOTAL PROTEIN 7.5 gm/dL (6.4-8.2)
[2019-04-20 10:36] VITALS: PULSE 82
== END 2019-04-20 10:36 | disposition home or self-care (01) ==
LOC: COL.ER 06:23
PROVIDERS: Emergency Medicine
DX: J45.901 Unspecified asthma with (acute) exacerbation (principal); I10 Essential (primary) hypertension; Z79.51 Long term (current) use of inhaled steroids
CPT/HCPCS: J2930; J3475

== ENCOUNTER 2019-06-14 00:56 | Emergency (ER) | payer MEDICARE ==
[~2019-06-14] VITALS: Ht 175.3 cm; Wt 97.7 kg
[2019-06-14 01:02] VITALS: BP 140/78; TEMP 97.4
[2019-06-14 01:30] LABS: BASO # 0.1 (0.0-0.2); BASO % 0.8 % (0.0-2.0); EOS # 1.2 (0.0-0.7); EOS % 14.6 % (0-4.0); GRAN # 3.9 (1.4-6.5); GRAN % 49.2 % (42.2-75.2); HEMATOCRIT 39.2 % (42.0-52.0); HEMOGLOBIN 12.7 g/dl (13.5-18.0); LYMPH # 2.1 (1.2-3.4); LYMPH % 26.3 % (20.0-51.0); MEAN CELL VOLUME 91 fl (80.0-100.0); MEAN CORPUSCULAR HEMOGLOBIN 30 pg (27.0-31.0); MEAN CORPUSCULAR HGB CONC 32 g/dl (33.0-37.0); MEAN PLATELET VOLUME 9.2 fl (7.4-10.4); MONO # 0.7 (0.1-0.6); PLATELET COUNT 239 K/mm3 (130-400); RED BLOOD COUNT 4.31 M/mm3 (4.20-5.60); REDCELL DISTRIBUTION WIDTH-CV 12.8 % (11.5-14.5)
[2019-06-14 01:46] LABS: CALCIUM 9.4 mg/dL (8.4-10.2); CREATININE, serum 0.94 (0.66-1.25); POTASSIUM 4.2 mmol/L (3.4-5.0); TOTAL PROTEIN 7.4 gm/dL (6.4-8.2)
[2019-06-14 01:59] LABS: ALBUMIN 4.2 gm/dL (3.5-5.0); BILIRUBIN,TOTAL 0.3 mg/dL (0.0-1.0)
[2019-06-14] MEDS ORDERED: PREDNISONE20 MG PO (03:04)
[2019-06-14] MEDS ORDERED: ALLEGRA-D 24HR1 T24 PO (03:04)
[2019-06-14 03:05] VITALS: PULSE 75
== END 2019-06-14 03:05 | disposition home or self-care (01) ==
LOC: COL.ER 00:56
PROVIDERS: Emergency Medicine
DX: J45.901 Unspecified asthma with (acute) exacerbation (principal); I10 Essential (primary) hypertension; Z98.890 Other specified postprocedural states
CPT/HCPCS: J1200; J7040

== ENCOUNTER 2020-06-17 09:00 | Outpatient (RCR) | payer MEDICARE, MEDICAID ==
[2020-07-05] MEDS ORDERED: ZYRTEC 10MG10 MG PO (13:27)
[2020-07-05] MEDS ORDERED: PREDNISONE20 MG PO (13:27)
[2020-07-05] MEDS ORDERED: FLONASEALLERGY NS (13:27)
== END 2020-08-18 | disposition home or self-care (01) ==
LOC: WSC
DX: Z98.1 Arthrodesis status (principal)

== ENCOUNTER 2020-07-05 11:02 | Emergency (ER) | payer MEDICARE, MEDICAID ==
[~2020-07-05] VITALS: Ht 175.3 cm; Wt 95.5 kg
[2020-07-05 11:10] VITALS: TEMP 98.2
[2020-07-05 11:54] LABS: BASO # 0.1 (0.0-0.2); BASO % 0.7 % (0.0-2.0); EOS # 0.7 (0.0-0.7); EOS % 9.3 % (0-4.0); GRAN # 3.9 (1.4-6.5); GRAN % 54.3 % (42.2-75.2); HEMOGLOBIN 12.4 g/dl (13.5-18.0); LYMPH % 27.9 % (20.0-51.0); MEAN CELL VOLUME 89 fl (80.0-100.0); MEAN CORPUSCULAR HEMOGLOBIN 30 pg (27.0-31.0); MEAN CORPUSCULAR HGB CONC 34 g/dl (33.0-37.0); MEAN PLATELET VOLUME 10.1 fl (7.4-10.4); MONO # 0.6 (0.1-0.6); MONO % 7.7 % (1.7-9.3); PLATELET COUNT 219 K/mm3 (130-400); RED BLOOD COUNT 4.15 M/mm3 (4.20-5.60); REDCELL DISTRIBUTION WIDTH-CV 13.9 % (11.5-14.5)
[2020-07-05 11:56] LABS: HEMATOCRIT 36.8 % (42.0-52.0)
[2020-07-05 11:59] LABS: PROTHROMBIN TIME 11.7 SECONDS (9.7-12.8)
[2020-07-05 12:05] LABS: ALANINE AMINOTRANSFERASE 34 U/L (4-49); ALBUMIN 4.4 gm/dL (3.5-5.0); ALKALINE PHOSPHATASE 118 U/L (50-136); ANION GAP 8 mmol/L (7-16); AST,SGOT 50 U/L (15-37); BILIRUBIN,TOTAL 0.6 mg/dL (0.0-1.0); BLOOD UREA NITROGEN 17 mg/dL (9-20); CALCIUM 9.3 mg/dL (8.4-10.2); CARBON DIOXIDE 26 mmol/L (22-30); CHLORIDE 101 mmol/L (98-107); CREATININE, serum 0.85 (0.66-1.25); GLUCOSE 93 mg/dL (74-106); POTASSIUM 3.8 mmol/L (3.4-5.0); SODIUM 135 mmol/L (137-145); TOTAL PROTEIN 7.7 gm/dL (6.4-8.2)
[2020-07-05 12:18] LABS: TROPONIN-I < 0.012 ng/mL (0.000-0.035)
[2020-07-05] MEDS ORDERED: PREDNISONE20 MG PO (13:27)
[2020-07-05] MEDS ORDERED: FLONASEALLERGY NS (13:27)
[2020-07-05] MEDS ORDERED: ZYRTEC 10MG10 MG PO (13:27)
[2020-07-05 13:43] VITALS: BP 143/89; PULSE 85
== END 2020-07-05 13:44 | disposition home or self-care (01) ==
LOC: COL.ER 11:02
PROVIDERS: Nurse Practitioner Primary Care
DX: J45.901 Unspecified asthma with (acute) exacerbation (principal); J30.9 Allergic rhinitis, unspecified; I10 Essential (primary) hypertension; G89.29 Other chronic pain; Z79.52 Long term (current) use of systemic steroids; Z79.51 Long term (current) use of inhaled steroids

== ENCOUNTER 2020-08-02 05:15 | Emergency (ER) | payer MEDICARE, MEDICAID ==
[~2020-08-02] VITALS: Ht 175.3 cm; Wt 97.7 kg
[~2020-08-02 05:15] MED LIST changes: +ZYRTEC 10MG10 MG PO
[2020-08-02 05:20] VITALS: TEMP 97.7
[2020-08-02 05:40] LABS: BASO % 0.6 % (0.0-2.0); EOS # 0.4 (0.0-0.7); EOS % 6.3 % (0-4.0); GRAN # 2.6 (1.4-6.5); GRAN % 41.9 % (42.2-75.2); HEMOGLOBIN 12.2 g/dl (13.5-18.0); LYMPH # 2.6 (1.2-3.4); LYMPH % 41.1 % (20.0-51.0); MEAN CELL VOLUME 90 fl (80.0-100.0); MEAN CORPUSCULAR HEMOGLOBIN 30 pg (27.0-31.0); MEAN CORPUSCULAR HGB CONC 34 g/dl (33.0-37.0); MEAN PLATELET VOLUME 9.9 fl (7.4-10.4); MONO # 0.6 (0.1-0.6); MONO % 9.8 % (1.7-9.3); PLATELET COUNT 236 K/mm3 (130-400); RED BLOOD COUNT 4.05 M/mm3 (4.20-5.60); REDCELL DISTRIBUTION WIDTH-CV 12.9 % (11.5-14.5)
[2020-08-02 05:43] LABS: HEMATOCRIT 36.4 % (42.0-52.0)
[2020-08-02 05:50] LABS: ALANINE AMINOTRANSFERASE 36 U/L (4-49); ALBUMIN 4.4 gm/dL (3.5-5.0); ALKALINE PHOSPHATASE 102 U/L (50-136); ANION GAP 11 mmol/L (7-16); AST,SGOT 43 U/L (15-37); BILIRUBIN,TOTAL 0.3 mg/dL (0.0-1.0); BLOOD UREA NITROGEN 19 mg/dL (9-20); CALCIUM 9.2 mg/dL (8.4-10.2); CARBON DIOXIDE 29 mmol/L (22-30); CHLORIDE 100 mmol/L (98-107); CREATININE, serum 1.08 (0.66-1.25); GLUCOSE 122 mg/dL (74-106); POTASSIUM 3.5 mmol/L (3.4-5.0); SODIUM 140 mmol/L (137-145); TOTAL PROTEIN 7.4 gm/dL (6.4-8.2)
[2020-08-02 06:21] LABS: TROPONIN-I < 0.012 ng/mL (0.000-0.035)
[2020-08-02 07:00] VITALS: BP 142/85; PULSE 79
== END 2020-08-02 07:37 | disposition home or self-care (01) ==
LOC: COL.ER 05:15
PROVIDERS: Emergency Medicine
DX: J45.901 Unspecified asthma with (acute) exacerbation (principal); Z79.52 Long term (current) use of systemic steroids; Z79.51 Long term (current) use of inhaled steroids
CPT/HCPCS: J1100

== ENCOUNTER 2020-08-09 12:26 | Emergency (ER) | payer MEDICARE, MEDICAID ==
[~2020-08-09] VITALS: Ht 175.3 cm; Wt 100.0 kg
[2020-08-09 12:41] VITALS: TEMP 98.3
[2020-08-09 13:35] VITALS: BP 136/82; PULSE 63
== END 2020-08-09 13:36 | disposition home or self-care (01) ==
LOC: COL.ER 12:26
DX: M79.652 Pain in left thigh (principal); J45.909 Unspecified asthma, uncomplicated; I10 Essential (primary) hypertension; Z79.51 Long term (current) use of inhaled steroids
CPT/HCPCS: J1885

== ENCOUNTER 2020-11-09 03:33 | Emergency (ER) | payer MEDICARE, MEDICAID ==
[~2020-11-09] VITALS: Ht 172.7 cm; Wt 97.6 kg
[2020-11-09 03:44] VITALS: TEMP 98.3
[2020-11-09] MEDS ORDERED: PROVENTIL0.09 MG/A1 IH (03:59)
[2020-11-09] MEDS ORDERED: MEDROL 4MG DOSPA4 MG PO (03:59)
[2020-11-09] MEDS ORDERED: ZYRTEC-D 5 MG-11 TER PO (04:44)
[2020-11-09 04:56] VITALS: BP 176/97; PULSE 76
== END 2020-11-09 05:00 | disposition home or self-care (01) ==
LOC: COL.ER 03:33
DX: J06.9 Acute upper respiratory infection, unspecified (principal); J45.909 Unspecified asthma, uncomplicated; Z20.828 Contact with and (suspected) exposure to other viral communicable diseases; Z79.52 Long term (current) use of systemic steroids; Z79.51 Long term (current) use of inhaled steroids
CPT/HCPCS: J1100

== ENCOUNTER 2020-12-05 15:25 | Emergency (ER) | payer MEDICARE, MEDICAID ==
[~2020-12-05] VITALS: Ht 172.7 cm; Wt 95.5 kg
[~2020-12-05 15:25] MED LIST changes: +ZYRTEC-D 5 MG-11 TER PO
[2020-12-05 15:31] VITALS: TEMP 97.7
[2020-12-05 16:47] LABS: BASO % 0.4 % (0.0-2.0); EOS # 0.1 (0.0-0.7); EOS % 1.4 % (0-4.0); GRAN # 5.6 (1.4-6.5); GRAN % 78.1 % (42.2-75.2); HEMATOCRIT 37.4 % (42.0-52.0); HEMOGLOBIN 12.2 g/dl (13.5-18.0); MEAN CELL VOLUME 91 fl (80.0-100.0); MEAN CORPUSCULAR HEMOGLOBIN 30 pg (27.0-31.0); MEAN CORPUSCULAR HGB CONC 33 g/dl (33.0-37.0); MEAN PLATELET VOLUME 9.9 fl (7.4-10.4); MONO # 0.4 (0.1-0.6); MONO % 5.7 % (1.7-9.3); PLATELET COUNT 207 K/mm3 (130-400); RED BLOOD COUNT 4.11 M/mm3 (4.20-5.60); REDCELL DISTRIBUTION WIDTH-CV 13.7 % (11.5-14.5)
[2020-12-05 16:59] LABS: ALBUMIN 4.2 gm/dL (3.5-5.0); BILIRUBIN,TOTAL 0.7 mg/dL (0.0-1.0); CALCIUM 9.3 mg/dL (8.4-10.2); CREATININE, serum 0.86 (0.66-1.25); MAGNESIUM 2.1 mg/dL (1.6-2.3); POTASSIUM 4.2 mmol/L (3.4-5.0); TOTAL PROTEIN 7.1 gm/dL (6.4-8.2)
[2020-12-05 17:11] LABS: COLLECTION METHOD CLEAN CATCH
[2020-12-05 17:16] LABS: PH 7 (5-8); SQUAMOUS EPITHELIAL None Seen /hpf; URINE APPEARANCE Clear; URINE BACTERIA None Seen /hpf; URINE BILIRUBIN Negative (NEGATIVE); URINE BLOOD Negative (NEGATIVE); URINE COLOR Yellow; URINE GLUCOSE Negative (NEGATIVE); URINE KETONE Trace (NEGATIVE); URINE LEUKOCYTE ESTERASE Negative (NEGATIVE); URINE NITRATE Negative (NEGATIVE); URINE PROTEIN(semi-quant) Negative (NEGATIVE); URINE RBC 0-2 /hpf; URINE UROBILINOGEN Negative (NEGATIVE); URINE WBC 0-2 /hpf
[2020-12-05 17:39] VITALS: BP 129/86; PULSE 65
== END 2020-12-05 17:41 | disposition home or self-care (01) ==
LOC: COL.ER 15:25
PROVIDERS: Emergency Medicine
DX: J45.909 Unspecified asthma, uncomplicated (principal); K11.7 Disturbances of salivary secretion; R10.30 Lower abdominal pain, unspecified; Z79.52 Long term (current) use of systemic steroids; Z79.51 Long term (current) use of inhaled steroids

== ENCOUNTER → 2020-12-15 | Outpatient (CLI) | payer MEDICARE | LOC: COL.RAD 12:25 | DX: M47.816 Spondylosis without myelopathy or radiculopathy, lumbar region (principal); Z98.1 Arthrodesis status; Z98.890 Other specified postprocedural states ==

== ENCOUNTER 2020-12-16 14:26 | Emergency (ER) | payer MEDICARE ==
[~2020-12-16] VITALS: Ht 172.7 cm; Wt 96.4 kg
[2020-12-16 14:31] VITALS: BP 128/77; PULSE 87; TEMP 97.6
[2020-12-16] MEDS ORDERED: AMOXICILLIN 8751 TAB PO (15:37)
== END 2020-12-16 15:53 | disposition home or self-care (01) ==
LOC: COL.ER 14:26
DX: J32.9 Chronic sinusitis, unspecified (principal); I10 Essential (primary) hypertension; G89.29 Other chronic pain; J45.909 Unspecified asthma, uncomplicated; Z20.822 Contact with and (suspected) exposure to COVID-19; Z79.52 Long term (current) use of systemic steroids; Z79.51 Long term (current) use of inhaled steroids

== ENCOUNTER 2021-04-12 09:19 | Emergency (ER) | payer MEDICARE ==
[~2021-04-12] VITALS: Ht 172.7 cm; Wt 97.7 kg
[2021-04-12 09:25] VITALS: TEMP 97.8
[2021-04-12 09:43] LABS: BASO % 0.5 % (0.0-2.0); EOS # 0.3 (0.0-0.7); EOS % 4.1 % (0-4.0); GRAN # 4.9 (1.4-6.5); HEMATOCRIT 39.6 % (42.0-52.0); LYMPH % 24.9 % (20.0-51.0); MEAN CELL VOLUME 89 fl (80.0-100.0); MEAN CORPUSCULAR HEMOGLOBIN 29 pg (27.0-31.0); MEAN CORPUSCULAR HGB CONC 33 g/dl (33.0-37.0); MEAN PLATELET VOLUME 9.7 fl (7.4-10.4); MONO # 0.7 (0.1-0.6); MONO % 8.2 % (1.7-9.3); PLATELET COUNT 265 K/mm3 (130-400); RED BLOOD COUNT 4.44 M/mm3 (4.20-5.60); REDCELL DISTRIBUTION WIDTH-CV 12.1 % (11.5-14.5)
[2021-04-12 09:52] LABS: ALBUMIN 4.7 gm/dL (3.5-5.0); BILIRUBIN,TOTAL 0.3 mg/dL (0.0-1.0); C-REACTIVE PROTEIN 1.1 mg/dL (0.0-0.9); CALCIUM 9.3 mg/dL (8.4-10.2); CREATININE, serum 0.92 (0.66-1.25); TOTAL PROTEIN 8.3 gm/dL (6.4-8.2)
[2021-04-12 12:03] LABS: TRICYCLIC ANTIDEPRESS URINE NEGATIVE
[2021-04-12 12:26] VITALS: BP 124/84; PULSE 76
[2021-06-26] MEDS ORDERED: PREDNISONE50 MG PO (10:51)
== END 2021-04-12 12:27 | disposition home or self-care (01) ==
LOC: COL.ER 09:19
PROVIDERS: Family Medicine
DX: F10.129 Alcohol abuse with intoxication, unspecified (principal); E86.0 Dehydration; I10 Essential (primary) hypertension; J45.909 Unspecified asthma, uncomplicated; Z79.51 Long term (current) use of inhaled steroids; Z79.899 Other long term (current) drug therapy; Y90.5 Blood alcohol level of 100-119 mg/100 ml
CPT/HCPCS: J2405; J7120

== ENCOUNTER 2021-05-12 05:57 | Day surgery (SDC) | payer MEDICARE ==
[~2021-05-12] VITALS: Ht 172.7 cm; Wt 97.3 kg
[2021-05-12] VITALS (9 sets, daily range): BP systolic 112–167; BP diastolic 67–100; PULSE 73–86; TEMP 98.1
[2021-05-12] MEDS ORDERED: PROAIR HFA0.09 MG/AC IH (06:12)
[2021-05-12] MEDS ORDERED: ZYRTEC 10MG10 MG PO (06:13)
[2021-05-12] MEDS ORDERED: TRELEGY ELLIPT1 EACH IH (06:16)
[2021-05-12 06:56] LABS: HEMATOCRIT 37.5 % (42.0-52.0); HEMOGLOBIN 12.4 g/dl (13.5-18.0); MEAN CELL VOLUME 89 fl (80.0-100.0); MEAN CORPUSCULAR HEMOGLOBIN 29 pg (27.0-31.0); MEAN CORPUSCULAR HGB CONC 33 g/dl (33.0-37.0); MEAN PLATELET VOLUME 9.6 fl (7.4-10.4); PLATELET COUNT 265 K/mm3 (130-400); RED BLOOD COUNT 4.23 M/mm3 (4.20-5.60); REDCELL DISTRIBUTION WIDTH-CV 12.6 % (11.5-14.5)
[2021-05-12 07:05] LABS: CALCIUM 9.6 mg/dL (8.4-10.2); CREATININE, serum 0.98 (0.66-1.25)
[2021-05-12 07:08] LABS: INR 1.1 (0.8-3.0); PROTHROMBIN TIME 12.2 SECONDS (9.7-12.8)
[2021-06-26] MEDS ORDERED: PREDNISONE50 MG PO (10:51)
== END 2021-05-12 12:14 | disposition home or self-care (01) ==
LOC: COL.CAR 05:57
PROVIDERS: Internal Medicine Cardiovascular Disease
DX: R94.39 Abnormal result of other cardiovascular function study (principal); I10 Essential (primary) hypertension; E78.00 Pure hypercholesterolemia, unspecified; Z79.891 Long term (current) use of opiate analgesic; Z79.899 Other long term (current) drug therapy; Z20.822 Contact with and (suspected) exposure to COVID-19
CPT/HCPCS: J1644; J2250; J3010; J7030

== ENCOUNTER → 2021-06-26 | Emergency (ER) | payer MEDICARE ==
[~2021-06-26] VITALS: Ht 172.7 cm; Wt 95.5 kg
[~2021-06-26] MED LIST changes: +PREDNISONE50 MG PO; +PROAIR HFA0.09 MG/AC IH; +TRELEGY ELLIPT1 EACH IH
[2021-06-26 09:01] VITALS: TEMP 98.1
[2021-06-26 09:23] LABS: BASO % 0.4 % (0.0-2.0); EOS # 0.2 (0.0-0.7); EOS % 2.9 % (0-4.0); GRAN # 2.8 (1.4-6.5); GRAN % 52.3 % (42.2-75.2); HEMATOCRIT 37.5 % (42.0-52.0); HEMOGLOBIN 12.4 g/dl (13.5-18.0); LYMPH # 1.9 (1.2-3.4); MEAN CELL VOLUME 88 fl (80.0-100.0); MEAN CORPUSCULAR HEMOGLOBIN 29 pg (27.0-31.0); MEAN CORPUSCULAR HGB CONC 33 g/dl (33.0-37.0); MEAN PLATELET VOLUME 9.5 fl (7.4-10.4); MONO # 0.4 (0.1-0.6); MONO % 8.2 % (1.7-9.3); PLATELET COUNT 235 K/mm3 (130-400); RED BLOOD COUNT 4.26 M/mm3 (4.20-5.60)
[2021-06-26 09:34] LABS: ALANINE AMINOTRANSFERASE 31 U/L (4-49); ALBUMIN 4.3 gm/dL (3.5-5.0); ALKALINE PHOSPHATASE 98 U/L (50-136); ANION GAP 10 mmol/L (7-16); AST,SGOT 47 U/L (15-37); BILIRUBIN,TOTAL 0.3 mg/dL (0.0-1.0); BLOOD UREA NITROGEN 12 mg/dL (9-20); CALCIUM 9.1 mg/dL (8.4-10.2); CARBON DIOXIDE 28 mmol/L (22-30); CHLORIDE 98 mmol/L (98-107); CREATININE, serum 0.71 (0.66-1.25); GLUCOSE 110 mg/dL (74-106); POTASSIUM 4.1 mmol/L (3.4-5.0); SODIUM 135 mmol/L (137-145); TOTAL PROTEIN 7.6 gm/dL (6.4-8.2)
[2021-06-26 10:50] VITALS: BP 140/61; PULSE 80
[2021-06-26 11:01] LABS: TROPONIN-I < 0.012 ng/mL (0.000-0.035)
== END ==
LOC: COL.ER 08:49
PROVIDERS: Emergency Medicine
DX: R07.89 Other chest pain (principal); R06.02 Shortness of breath; J45.909 Unspecified asthma, uncomplicated; I10 Essential (primary) hypertension; G89.29 Other chronic pain; M54.9 Dorsalgia, unspecified; Z79.891 Long term (current) use of opiate analgesic; Z79.899 Other long term (current) drug therapy; Z20.822 Contact with and (suspected) exposure to COVID-19
CPT/HCPCS: J2930

== ENCOUNTER 2021-08-16 09:33 | Emergency (ER) | payer MEDICARE ==
[~2021-08-16] VITALS: Ht 175.3 cm; Wt 95.5 kg
[2021-08-16 09:55] VITALS: BP 122/79; PULSE 91; TEMP 99.1
== END 2021-08-16 12:45 | disposition home or self-care (01) ==
LOC: COL.ER 09:33
DX: S30.0XXA Contusion of lower back and pelvis, initial encounter (principal); I25.10 Atherosclerotic heart disease of native coronary artery without angina pectoris; I10 Essential (primary) hypertension; M54.9 Dorsalgia, unspecified; G89.29 Other chronic pain; Z98.1 Arthrodesis status; Z79.891 Long term (current) use of opiate analgesic; Z79.899 Other long term (current) drug therapy; W18.30XA Fall on same level, unspecified, initial encounter
CPT/HCPCS: J1885; J2270

== ENCOUNTER 2022-02-22 09:29 | Emergency (ER) | payer MEDICARE ==
[~2022-02-22] VITALS: Ht 175.3 cm; Wt 90.0 kg
[2022-02-22 09:44] VITALS: TEMP 97.8
[2022-02-22] MEDS ORDERED: NORCO 325 MG-51 TAB PO (11:04)
[2022-02-22 11:11] VITALS: BP 145/87; PULSE 67
== END 2022-02-22 11:11 | disposition home or self-care (01) ==
LOC: COL.ER 09:29
DX: M54.16 Radiculopathy, lumbar region (principal); Z98.890 Other specified postprocedural states; Z98.1 Arthrodesis status
CPT/HCPCS: J1885

== ENCOUNTER → 2022-03-24 | Outpatient (CLI) | payer MEDICARE | LOC: COL.RAD 03-22 10:30 | DX: M54.50 Low back pain, unspecified (principal); R53.1 Weakness; Z98.890 Other specified postprocedural states | CPT/HCPCS: A9575 ==

== ENCOUNTER 2022-04-13 21:54 | Emergency (ER) | payer MEDICARE ==
[~2022-04-13] VITALS: Ht 175.3 cm; Wt 90.9 kg
[2022-04-13 23:05] VITALS: TEMP 98.1
[2022-04-14 01:00] VITALS: BP 145/92; PULSE 81
[2022-04-14] MEDS ORDERED: FLEXERIL 1010 MG/TAB PO (03:09)
[2022-04-14] MEDS ORDERED: PERCOCET 325 MG1 TA2 PO (03:09)
[2022-04-14 03:52] LABS: COLLECTION METHOD CLEAN CATCH
[2022-04-14 04:29] LABS: MUCOUS Present (NOT PRESENT); PH 6 (5-8); SQUAMOUS EPITHELIAL None Seen /hpf (0-10); URINE APPEARANCE Clear (CLEAR/HAZY); URINE BACTERIA None Seen /hpf (NONE SEEN); URINE BILIRUBIN Negative (NEGATIVE); URINE BLOOD Negative (NEGATIVE); URINE COLOR Yellow (YELLOW); URINE GLUCOSE Negative (NEGATIVE); URINE KETONE Trace (NEGATIVE); URINE LEUKOCYTE ESTERASE Negative (NEGATIVE); URINE NITRATE Negative (NEGATIVE); URINE PROTEIN(semi-quant) Negative (NEGATIVE); URINE RBC None Seen /hpf (0-2); URINE UROBILINOGEN Negative (NEGATIVE)
== END 2022-04-14 01:15 | disposition home or self-care (01) ==
LOC: COL.ER 21:54
PROVIDERS: Emergency Medicine
DX: M54.50 Low back pain, unspecified (principal); G89.29 Other chronic pain; Z98.890 Other specified postprocedural states
CPT/HCPCS: J1885; J2270; J2360

== ENCOUNTER 2023-08-23 00:13 | Observation (INO) | payer MEDICARE ==
[~2023-08-23] VITALS: Ht 175.3 cm; Wt 84.0 kg
[2023-08-23] VITALS (8 sets, daily range): BP systolic 125–176; BP diastolic 74–87; PULSE 67–100; TEMP 97.5–98.7
[~2023-08-23 00:13] MED LIST changes: +DECADRON 4MG TAB4 MG PO; +NAPROSYN500 MG PO; +OMNICEF 300MG300 MG PO; +PERCOCET 325 MG1 TA2 PO; +TRELEGY ELLIPT1 EAC1 IH; +TUSS PO
[2023-08-23 01:14] LABS: BASO # 0.1 K/mm3 (0.0-0.2); BASO % 0.7 % (0.0-2.0); EOS # 0.1 K/mm3 (0.0-0.7); EOS % 1.1 % (0.0-4.0); GRAN # 5.4 K/mm3 (1.4-6.5); GRAN % 62.8 % (42.2-75.2); HEMATOCRIT 39.1 % (42.0-52.0); LYMPH # 2.3 K/mm3 (1.2-3.4); LYMPH % 26.8 % (20.0-51.0); MEAN CELL VOLUME 90 fl (80.0-100.0); MEAN CORPUSCULAR HEMOGLOBIN 30 pg (27-31); MEAN CORPUSCULAR HGB CONC 33 g/dl (33.0-37.0); MEAN PLATELET VOLUME 9.7 fl (7.4-10.4); MONO # 0.7 K/mm3 (0.1-0.6); MONO % 8.2 % (1.7-9.3); PLATELET COUNT 279 K/mm3 (130-400); RED BLOOD COUNT 4.34 M/mm3 (4.20-5.60); REDCELL DISTRIBUTION WIDTH-CV 13.4 % (11.5-14.5)
[2023-08-23 01:38] LABS: ALBUMIN 3.4 gm/dL (3.4-4.8); BILIRUBIN,TOTAL 0.4 mg/dL (0.2-1.2); C-REACTIVE PROTEIN 1.56 mg/dL (0.00-0.50); CALCIUM 9.4 mg/dL (8.4-10.2); CREATININE, serum 0.88 mg/dL (0.72-1.25); POTASSIUM 3.6 mmol/L (3.5-4.5); TOTAL PROTEIN 6.7 gm/dL (6.2-8.1)
[2023-08-23 01:46] LABS: TROPONIN-I 0.039 ng/mL (0.00-0.033)
[2023-08-23 06:24] LABS: CHOLESTEROL RISK RATIO 3.3
[2023-08-23 06:45] LABS: TSH w REFLEX 1.23 uIU/mL (0.350-4.940)
--- NOTE | 2023-08-23 08:00 | NUR ---
Patient laying in bed, A&Ox4. VSS. IV CDI, fluids infusing. Denies pain and discomfort. Reports having a continued cough. Call light within reach.
--- NOTE | 2023-08-23 10:09 | NUR ---
TROPONIN CALLED TO AGGIE ODONNELL
--- NOTE | 2023-08-23 10:35 | NUR ---
Initial visit; Patient thanked [employer] Team Leader for looking in on him and offering prayer and God's blessings. Patient has a great amount of vadim. Telesales Team Leader blessed to meet Jasiel.
[2023-08-23] MEDS ORDERED: GOOD NEIGH15 MG/5 M1 PO (10:54)
--- NOTE | 2023-08-23 16:03 | NUR ---
apron worker met with patient to discuss discharge planning. apron worker confirmed he lives in [place] with his oldest son, Jasiel, P# [phone]. Patient reports his primary care physician is Dr. Fuentes at [facility] and preferred pharmacy is [facility] in [facility]. Patient denied any issues with affording medications. Patient denied having any DPOA-HC and did not wish to complete one during his hospital stay. Patient has a nebulizer at home and is independent with his ADLS. patient would like to return home at time of discharge. Discharge Plan: Home
--- NOTE | 2023-08-23 20:00 | NUR ---
UPON SHIFT ASSESSMENT, ИРИНА WAS PLEASANT AND TALKATIVE-A&0 X4. HIS HR WAS TACHYCARDIC AT 103 BPM, LUNG SOUNDS WERE FINE CRACKLES UPPER LOBES, CLEAR LOWER LOBES. SP O2 AND TEMP IS WNL. HE C/O OF PERSISTENT COUGH BUT DENIED SOA. REQUESTED HIS PRESCRIBED PRN ROBITUSSIN/CODEIN. HE EXHIBITS A GOOD UNDERSTANDING OF HIS UPCOMING SCHEDULED STRESS TEST. CALL LIGHT WITHIN REACH.
--- NOTE | 2023-08-23 23:00 | NUR ---
PATIENT REQUESTED SCDS REMOVED. COULD NOT TURN IN BED AND WAS DIFFICULT TO SLEEP.
[2023-08-24] VITALS (19 sets, daily range): BP systolic 125–169; BP diastolic 69–111; PULSE 79–99; TEMP 98.1–98.8
[2023-08-24 05:51] LABS: CALCIUM 9.4 mg/dL (8.4-10.2); CREATININE, serum 0.84 mg/dL (0.72-1.25); POTASSIUM 3.6 mmol/L (3.5-4.5)
[2023-08-24 05:53] LABS: BASO % 0.2 % (0.0-2.0); EOS % 0.1 % (0.0-4.0); GRAN # 6.8 K/mm3 (1.4-6.5); GRAN % 78.2 % (42.2-75.2); HEMOGLOBIN 11.9 g/dl (13.5-18.0); LYMPH # 1.4 K/mm3 (1.2-3.4); LYMPH % 16.3 % (20.0-51.0); MEAN CELL VOLUME 89 fl (80.0-100.0); MEAN CORPUSCULAR HEMOGLOBIN 30 pg (27-31); MEAN CORPUSCULAR HGB CONC 33 g/dl (33.0-37.0); MEAN PLATELET VOLUME 10.2 fl (7.4-10.4); MONO # 0.4 K/mm3 (0.1-0.6); PLATELET COUNT 261 K/mm3 (130-400); RED BLOOD COUNT 4.04 M/mm3 (4.20-5.60); REDCELL DISTRIBUTION WIDTH-CV 13.7 % (11.5-14.5)
--- NOTE | 2023-08-24 07:00 | NUR ---
PATIENT SITTING UP IN BED LISTENING TO MUSIC RECEVING BREATHING TREATMENT PER RT. PATIENT IS ALERT AND ORIENTED. SHIFT ASSESSMENT COMPLETED. LUNG SOUNDS ARE DIMINISHED IN THE BASES. PATIENT DOES NOT COMPLAIN OF CHEST PAIN OR SOA. PATIENT STATES HE HAS AN "ANNOYING COUGH." DENIES ANY NEEDS AT THIS TIME. CALL LIGHT WITHIN REACH.
--- NOTE | 2023-08-24 07:57 | NUR ---
TOWARDS END OF SHIFT, ИРИНА WAS AWAKE AND REQUESTED SHOWER SUPPLIES AND HIS PRN ROBITUSSIN/CODEIN. HE EAGERLY IS AWAITING HIS STRESS TEST SO HE MAY EAT. HE DENIED CHX PAIN AND SOA.
--- NOTE | 2023-08-24 10:30 | NUR ---
PATIENT LEFT FOR [place] VIA WHEELCHAIR. PATIENT WAS ALERT AND ORIENTED.
--- NOTE | 2023-08-24 18:38 | NUR ---
PATIENT HAS BEEN PLEASANT ALL DAY. VSS. ON CONTACT/DROPLET PER DR. DRAPER. TESTING FOR MICROBACTERIUM COMPLEX PNEUMONIA. PATIENT IS INDEPEDENT IN HIS ROOM. WANTS HIS PRN COUGH MEDICINE EVERY 4 HOURS. HE WANTS TO BE WOKEN UP. CALL LIGHT NEXT TO PATIENT/
--- NOTE | 2023-08-24 20:00 | NUR ---
Assessment complete .A&Ox4. Denies nausea/shortness fo breath. SOre to chest from coughing. Cough syrup given. TELE reports sinus tach. Currently on RA. Up independent in room. INT to right AC flushes without difficulty. Plan of care discussed for NPO at 0000 for maryanne scan. Verbalizes understanding. Call light in reach. Will monitor.
[2023-08-25] VITALS (11 sets, daily range): BP systolic 125–154; BP diastolic 68–94; PULSE 72–91; TEMP 97.9–98.4
--- NOTE | 2023-08-25 03:42 | NUR ---
Patient called requesting cough syrup. States "can I have that other little pill they wake me up for so I can sleep." Protonix given per request. Denies current needs. Call light in reach. Will monitor.
--- NOTE | 2023-08-25 05:52 | NUR ---
Patient had an uneventful night. Received robitussin with codeine for cough q4h per request. Denies shortness of breath at rest-states he is "a little winded" with activity. VS remained stable. Denies current needs. Call light in reach will monitor.
--- NOTE | 2023-08-25 08:00 | NUR ---
Patient is resting in bed, alert and oriented x 4, asking for his robitussin, provided. Assessment completed, Tenemetry in place, Sinus tachy. Continues with cough. RAC IV leaking, discontinued, started new one 20 LFA. No further needs at this time. Call light within reach.
[2023-08-25 16:34] LABS: TB GOLD INTERPRETATION Negative (Negative)
--- NOTE | 2023-08-25 18:55 | NUR ---
PT had a calm day, is asking when he will go home. He continue asking for robitussin as allowed. Getting IV antibiotics per orders. Report given to night RN.
--- NOTE | 2023-08-25 23:58 | NUR ---
Shift assessment completed- see documentation. Pt is alert and oriented. He denies pain or dyspnea at this time. Potassium was repalced orally. Will be rechecked in AM. He is receiving IV zosyn and PRN robitussin as ordered with his PM meds. He ambulates independently in the room. He denies other needs at this time. Call light left within reach.
[2023-08-26 00:30] VITALS: BP_SYST 128
[2023-08-26 03:34] VITALS: BP 139/86; PULSE 81; TEMP 98.4
[2023-08-26 04:30] VITALS: BP_SYST 139
[2023-08-26 07:25] VITALS: BP 163/77; PULSE 94; TEMP 98.4
--- NOTE | 2023-08-26 09:18 | NUR ---
Patient alert and oriented x4 this morning. Shift assessment complete, no new variances noted. Fine crackles noted to base of lungs, but cleared after coughing. Cough was dry sounding. Patient ambulates self around room frequently, gait is steady. Denies pain or discomfort. All needs met at this time.
[2023-08-26] MEDS ORDERED: CEFTIN500 MG PO (10:28)
[2023-08-26] MEDS ORDERED: DOXYCYCLINE HY100 MG PO (10:28)
[2023-08-26] MEDS ORDERED: PREDNISONE10 MG PO (10:30)
[2023-08-26] MEDS ORDERED: IPRATROPIUM BROM3 M1 IH (10:31)
[2023-08-26] MEDS ORDERED: NEB MC (10:31)
[2023-08-26] MEDS ORDERED: CHERATUSSIN AC120 ML PO (10:32)
[2023-08-26] MEDS ORDERED: TRELEGY ELLIPT1 EAC1 IH (10:32)
[2023-08-26] MEDS ORDERED: LIPITOR 40MG TA40 MG PO (10:36)
--- NOTE | 2023-08-26 11:27 | NUR ---
Discharge instructions discussed with patient including medications, follow-up appointments, and education packets. Patient verbalized understanding. IV discontinued to left forearm with no complications. Telemetry off. Potassium supplement administered for low potassium criteria. Patient currently eating lunch before leaving.
--- NOTE | 2023-08-26 12:22 | NUR ---
Patient escorted out by staff via ambulation around 1100. No concerns voiced at time of discharge.
[2023-08-26 20:08] LABS: ANGIOTENSIN CONVERTING ENZYME 27 U/L (14-82)
[2023-08-29 16:09] LABS: HISTOPLASMA ID Negative (Negative)
[2023-08-29 23:09] LABS: HISTOPLASMA MYCELIAL Negative (Neg:<1:2); HISTOPLASMA YEAST Negative (Neg:<1:2)
== END 2023-08-26 11:00 | disposition home or self-care (01) ==
LOC: COL.ER 00:13 → MEDICAL 04:49
PROVIDERS: Internal Medicine Pulmonary Disease; Nurse Practitioner; Nurse Practitioner Family; Physician Assistant; ADMIT Internal Medicine
DX: R07.89 Other chest pain (principal); J18.0 Bronchopneumonia, unspecified organism; R91.8 Other nonspecific abnormal finding of lung field; G47.33 Obstructive sleep apnea (adult) (pediatric); J45.909 Unspecified asthma, uncomplicated
CPT/HCPCS: A9500-JZ; G0378; J2543; J2785; J3480; J7030; J7512

== ENCOUNTER 2023-09-21 11:57 | Day surgery (SDC) | payer MEDICARE ==
[~2023-09-21] VITALS: Ht 170.2 cm; Wt 85.0 kg
[~2023-09-21 11:57] MED LIST changes: +CEFTIN500 MG PO; +CHERATUSSIN AC120 ML PO; +DOXYCYCLINE HY100 MG PO; +GOOD NEIGH15 MG/5 M1 PO; +LIPITOR 40MG TA40 MG PO; +NEB MC
--- NOTE | 2023-09-21 12:47 | NUR ---
SILVIO SELF CRNA NOTIFIED OF PATIENT'S COUGH. PATIENT STATES THAT HE HAD PNEUMONIA IN [place] AND WAS HOSPITALIZIED. HAS HAD PERSISTENT NON PRODUCTIVE COUGH. STATES HAS DRY TICKLE IN THROAT AND IS BLOWING NOSE. STATES HAS BEEN HAVING POST NASAL DRIP. ORDER RECEIVED FOR SVN TREATMENT. 1305 DR. SHAFER NOTIFIED OF PATIENT'S COUGH. ORDER FOR CXR OBTAINED AND DONE.
[2023-09-21] MEDS ORDERED: ZESTRIL 10MG10 MG PO (13:07)
[2023-09-21] MEDS ORDERED: MOTRIN 600600 MG/TAB PO ×2 (13:10)
[2023-09-21] MEDS ORDERED: PERCOCET 325 MG1 TA2 PO ×2 (13:11)
[2023-09-21 13:49] VITALS: BP 157/82; PULSE 72; TEMP 97.6
--- NOTE | 2023-09-21 14:20 | NUR ---
CXR REPORT GIVEN TO DR. SHAFER. HE WILL COMPARE PRIOR XRAY'S THEN TALK WITH THE PATIENT RE: SURGERY.
--- NOTE | 2023-09-21 14:40 | NUR ---
DR. SHAFER HAS TALKED WITH THE PATIENT AN WILL CANCEL SURGERY FOR TODAY. HE HAS BEEN INSTRUCTED TO FOLLOW UP WITH PULMONARY 09/22/23 AT 1415. IV DISCONTINUED AND SITE IS FREE OF REDNESS. PATIENT ESCORTED TO WAITING ROOM AND HE HAS ALREADY NOTIFIED HIS RIDE.
== END 2023-09-21 15:00 | disposition home or self-care (01) ==
LOC: SDCO 11:57
DX: K40.90 Unilateral inguinal hernia, without obstruction or gangrene, not specified as recurrent (principal); J18.9 Pneumonia, unspecified organism; R05.3 Chronic cough; Z53.8 Procedure and treatment not carried out for other reasons
CPT/HCPCS: J2704; J3010; J7120

== ENCOUNTER 2023-11-24 11:14 | Day surgery (SDC) | payer MEDICAID ==
[~2023-11-24] VITALS: Ht 175.3 cm; Wt 83.9 kg
[~2023-11-24 11:14] MED LIST changes: +LR 1,000 ML IV SCH; +ZESTRIL 10MG10 MG PO
[2023-11-24] MEDS ORDERED: MULTIPLE VITAMI1 TA1 PO (11:39)
[2023-11-24] MEDS ORDERED: VITAMIN C500 MG PO (11:39)
[2023-11-24] MEDS ORDERED: LIVER CLEANSE PO (11:40)
[2023-11-24 12:11] VITALS: BP 124/83; PULSE 75; TEMP 97.5
[2023-11-24 12:11] LABS: BASO % 0.5 % (0.0-2.0); EOS # 0.1 K/mm3 (0.0-0.7); EOS % 1.7 % (0.0-4.0); GRAN # 3.9 K/mm3 (1.4-6.5); GRAN % 58.6 % (42.2-75.2); HEMOGLOBIN 13.1 g/dl (13.5-18.0); LYMPH # 2.1 K/mm3 (1.2-3.4); LYMPH % 30.8 % (20.0-51.0); MEAN CELL VOLUME 89 fl (80.0-100.0); MEAN CORPUSCULAR HEMOGLOBIN 30 pg (27-31); MEAN CORPUSCULAR HGB CONC 34 g/dl (33.0-37.0); MEAN PLATELET VOLUME 10.1 fl (7.4-10.4); MONO # 0.5 K/mm3 (0.1-0.6); MONO % 8.1 % (1.7-9.3); PLATELET COUNT 254 K/mm3 (130-400); RED BLOOD COUNT 4.39 M/mm3 (4.20-5.60); REDCELL DISTRIBUTION WIDTH-CV 13.9 % (11.5-14.5)
--- NOTE | 2023-11-24 12:13 | NUR ---
1119 PT AMBULATORY TO BAY 5 WITH A STEADY GAIT, BREATHING EVEN AND UNLABORED. PT IS ALERT AND ORIENTED. CONSENTS REVIEWED WITH AND SIGNED BY PT. CHEST X-RAY COMPLETED. IV ESTABLISHED, BLOOD SPECIMEN OBTAINED AND SENT TO LAB. LR INFUSING VIA GRAVITY AT [facility]. CALL LIGHT IN REACH. WARM BLANKET PROVIDED.
[2023-11-24 12:27] LABS: CALCIUM 8.6 mg/dL (8.4-10.2); CREATININE, serum 0.87 mg/dL (0.72-1.25); POTASSIUM 3.4 mmol/L (3.5-4.5)
[2023-11-24] MEDS ORDERED: fentaNYL 50 MCG/ML 2 ML VIAL ONE (12:46)
[2023-11-24] MEDS ORDERED: Lidocaine PF 2% (20 MG/ML) 5 ML VIAL ONE (12:47)
[2023-11-24] MEDS ORDERED: NS 10 ML IV ONE (12:47)
[2023-11-24] MEDS ORDERED: ROXICODONE 55 MG/TAB PO (14:04)
[2023-11-24] MEDS ORDERED: Morphine 4 MG/ML VIAL IV PRN ×2 (14:15→16:00)
[2023-11-24] MEDS ORDERED: oxyCODONE 5 MG TAB PO PRN (14:15)
[2023-11-24] MEDS ORDERED: Ondansetron 4 MG/2 ML VIAL IV PRN ×2 (14:15→16:00)
[2023-11-24] MEDS ORDERED: Ibuprofen 600 MG TAB PO PRN (14:15)
[2023-11-24] MEDS ORDERED: Topical Skin Adhesive 1 EACH (1 ML) TOP ONE (14:35)
[2023-11-24 15:36] VITALS: BP 125/85; PULSE 62; TEMP 97.8
[2023-11-24 15:50] VITALS: BP 132/88; PULSE 74
[2023-11-24] MEDS ORDERED: Meperidine 50 MG/ML 1 ML VIAL IV PRN (16:00)
[2023-11-24 16:05] VITALS: BP 127/82; PULSE 77
[2023-11-24 16:20] VITALS: BP 130/76; PULSE 82
--- NOTE | 2023-11-24 16:59 | NUR ---
[id number]: PT TO RECOVERY BAY 5 FROM OR S/P OPEN RIGHT INGUINAL HERNIA REPAIR SLEEPY, RESPONSIVE, PLACED ON MONITOR, VSS ON RA RECEIVED REPORT AND ASSUMED CARE OF PT FROM [facility]/STEPHENIEN SURGICAL INCISION R TO MID LOWER ABD, CLOSED WITH SKIN GLUE - CDI WARM BLANKETS REFRESHED. C/O MILD RLQ PAIN PLAN TO CALL FRIEND TO BOOT AND SADDLE REPAIR PERSON WHEN READY FOR DC. 1550 C/O MOD-SEV RLQ PAIN - GIVEN 4MG MSO4 IV FOR SAME, EFFECTIVE (MILD PAIN), TOLERATED WELL/VSS ON RA. PROVIDED FOOD/FLUIDS - TOLERATING WELL. PT OOB TO BR AND BACK, IV LOCKED. STEADY GAIT. FRIEND CALLED TO ARRANGE RIDE PT A&O, NAD, VSS ON RA, TOLERATING PO, IS WITHOUT SIGNIFICANT COMPLAINT, WITH STEADY GAIT BY END OF STAY IV D/C'D. D/C INSTRUCTIONS, FOLLOW UP REVIEWED AND HANDED TO PT. ALL QUESTIONS AND CONCERNS ADDRESSED TO PT SATISFACTION. TAKEN TO EXIT VIA W/C WITH ALL BELONGINGS AND PAPERWORK IN HAND FRIEND TO DRIVE HOME.
== END 2023-11-24 16:25 | disposition home or self-care (01) ==
LOC: SDCO 11:14
PROVIDERS: Surgery
DX: K40.90 Unilateral inguinal hernia, without obstruction or gangrene, not specified as recurrent (principal); I10 Essential (primary) hypertension; Z79.899 Other long term (current) drug therapy
CPT/HCPCS: C1781; J0690; J2270; J2704; J3010; J7120